=== PATIENT | female | born 1945 | race Two or more races ===

== ENCOUNTER 2020-03-23 11:21 | Emergency (ER) | payer OTHER ==
[~2020-03-23] VITALS: Ht 160 cm; Wt 71.2 kg
[2020-03-23] MEDS ORDERED: XANAX2 MG PO (12:03)
[2020-03-23] MEDS ORDERED: TOPROL XL100 M1 PO (12:04)
[2020-03-23] MEDS ORDERED: MICARDIS40 MG PO (12:05)
[2020-03-23] MEDS ORDERED: FELODIPINE ER10 MG PO (12:05)
[2020-03-23] MEDS ORDERED: MACROBID 100 M100 MG PO (18:50)
== END 2020-03-23 19:09 | disposition home or self-care (01) ==
LOC: ER 11:21
DX: R10.84 Generalized abdominal pain (principal); N39.0 Urinary tract infection, site not specified; Z03.818 Encounter for observation for suspected exposure to other biological agents ruled out

== ENCOUNTER 2021-04-26 13:32 | Outpatient (CLI) | payer OTHER ==
[~2021-04-26 13:32] MED LIST: FELODIPINE ER10 MG PO; MACROBID 100 M100 MG PO; MICARDIS40 MG PO; TOPROL XL100 M1 PO; XANAX2 MG PO
== END 2021-04-26 13:36 | disposition home or self-care (01) ==
LOC: LAB 13:32
DX: J06.9 Acute upper respiratory infection, unspecified (principal); Z20.822 Contact with and (suspected) exposure to COVID-19